=== PATIENT | male | born 1990 | race Asian ===

== ENCOUNTER 2019-02-16 19:51 | Emergency (ER) | payer BC, OTHER ==
[~2019-02-16] VITALS: Ht 180.3 cm; Wt 72.6 kg
[2019-02-16 19:59] VITALS: BP 134/86
[2019-02-16] MEDS ORDERED: TETRACAINE HCL/PF 0.5% UD 2 ML BOTTLE ONE (20:21)
[2019-02-16] MEDS ORDERED: TETRACAINE HCL/PF 0.5% UD 2 ML BOTTLE OP ONE (20:30)
[2019-02-16] MEDS ORDERED: HYDROCODONE/APAP 10/325MG 1 EA TABLET ONE (22:05)
[2019-02-16] MEDS ORDERED: HYDROCODONE/APAP 10/325MG 1 EA TABLET PO ONE (22:30)
== END 2019-02-16 22:35 | disposition home or self-care (01) ==
LOC: ER 19:51
DX: H53.8 Other visual disturbances (principal); Z60.2 Problems related to living alone

== ENCOUNTER 2019-12-24 10:16 | Emergency (ER) | payer BC, OTHER ==
[~2019-12-24] VITALS: Ht 182.9 cm; Wt 77.1 kg
--- NOTE | 2019-12-24 10:16 | NUR ---
PT BIB SELF C/O ON AND OF FEVER FOR 5 DAYS, PT IS AAOX4, NOT IN RESPIRATORY DISTRESS, HOOKED TO MONITOR, KEPT RESTED AND COMFORTABLE, WILL CONTINUE TO MONITOR.
--- NOTE | 2019-12-24 10:30 | NUR ---
SEEN AND EXAMINED BY .
[2019-12-24 11:01] LABS: APPEARANCE,URINE Clear (CLEAR); BILIRUBIN,URINE Negative (NEGATIVE); BLOOD, URINE Negative Ery/uL (NEGATIVE); COLOR,URINE Yellow (YELLOW); KETONES,URINE Negative (NEGATIVE); LEUKOCYTE ESTERASE ,URINE Negative (NEGATIVE); NITRITE, URINE Negative (NEGATIVE); PH,URINE 6.5 (5.0-8.0); PROTEIN,URINE Negative (NEGATIVE); UGLUCOSE Negative (NEGATIVE)
--- NOTE | 2019-12-24 11:01 | NUR ---
RAPID INFLUENZA AND COVID SWAB OBTAINED AND SENT TO LAB.
--- NOTE | 2019-12-24 11:05 | NUR ---
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
--- NOTE | 2019-12-24 12:07 | NUR ---
Patient discharged to home in stable condition. Written and verbal after care instructions given. Patient verbalizes understanding of instruction.
[2019-12-24 12:10] VITALS: BP 127/71
[2019-12-24 12:10] LABS: BASOPHILS % (AUTO) 0.3 % (0.0-2.0); EOSINOPHILS % (AUTO) 0.9 % (0.0-6.0); HEMATOCRIT 47 % (39-51); HEMOGLOBIN 16.2 g/dL (13.5-17.5); LYMPHOCYTES # (AUTO) 1.3 /CMM (0.8-4.8); LYMPHOCYTES % (AUTO) 18.4 % (20.0-44.0); MEAN CORPUSCULAR HGB CONC 35 g/dl (31.0-36.0); MEAN CORPUSCULAR VOLUME 89 fL (80-96); MONOCYTES # (AUTO) 0.8 /CMM (0.1-1.30); MONOCYTES % (AUTO) 11.1 % (2.0-12.0); NEUTROPHILS % (AUTO) 69.3 % (43.0-81.0); PLATELET COUNT (AUTO) 191 /CMM (150-450); RED BLOOD CELL COUNT(AUTO) 5.27 MIL/uL (4.5-6.0); WHITE BLOOD COUNT (AUTO) 7.2 K/uL (4.3-11.0)
== END 2019-12-24 12:10 | disposition home or self-care (01) ==
LOC: ER 10:18
DX: R50.9 Fever, unspecified (principal); R05 Cough; Z20.828 Contact with and (suspected) exposure to other viral communicable diseases; R30.0 Dysuria
CPT/HCPCS: 36415; 71045; 81001; 85025; 87086; 87491; 87591; 87804; 99284; U0003; 81000-TC

== ENCOUNTER 2020-01-05 15:25 | Outpatient (CLI) | payer BC | END 2020-01-05 23:59 | disposition home or self-care (01) | LOC: LAB 15:25 | PROVIDERS: ATTEND Legal Medicine | DX: R33.9 Retention of urine, unspecified (principal) | CPT/HCPCS: 87086-TC ==

== ENCOUNTER 2020-01-09 10:58 | Outpatient (CLI) | payer BC ==
[2020-01-09 12:23] LABS: FREE T4 (FREE THYROXINE) 1.13 ng/dL (0.76-1.46); PROSTATE SPECIFIC ANTIGEN SCR 1.12 ng/mL (0.00-4.00)
[2020-01-09 12:39] LABS: ALBUMIN 4.1 g/dL (3.4-5.0); BILIRUBIN,TOTAL 0.5 mg/dL (0.2-1.0); CALCIUM, SERUM 9.2 mg/dL (8.5-10.1); CREATININE 0.9 mg/dL (0.6-1.3)
== END 2020-01-09 23:59 | disposition home or self-care (01) ==
LOC: LAB 10:58
PROVIDERS: ATTEND Legal Medicine
DX: Z00.00 Encounter for general adult medical examination without abnormal findings (principal); R30.0 Dysuria
CPT/HCPCS: 36415; 80053-TC; 80061-TC; 84153-TC; 84402; 84403; 84439-TC; 86592; 87806

== ENCOUNTER 2020-04-18 10:14 | Emergency (ER) | payer BC, OTHER ==
[~2020-04-18] VITALS: Ht 182.9 cm; Wt 81.6 kg
[2020-04-18 10:16] VITALS: BP 116/70
== END 2020-04-18 10:33 | disposition home or self-care (01) ==
LOC: ER 10:16
DX: Z20.828 Contact with and (suspected) exposure to other viral communicable diseases (principal)
CPT/HCPCS: 99283; C9803; U0003

== ENCOUNTER 2020-04-27 09:26 | Emergency (ER) | payer OTHER ==
[~2020-04-27] VITALS: Ht 182.9 cm; Wt 81.6 kg
[2020-04-27 09:33] VITALS: BP 134/88
== END 2020-04-27 09:53 | disposition home or self-care (01) ==
LOC: ER 09:28
DX: Z20.828 Contact with and (suspected) exposure to other viral communicable diseases (principal); R03.0 Elevated blood-pressure reading, without diagnosis of hypertension
CPT/HCPCS: 99283; C9803; U0003

== ENCOUNTER 2020-05-04 08:41 | Emergency (ER) | payer OTHER ==
[~2020-05-04] VITALS: Ht 182.9 cm; Wt 81.6 kg
[2020-05-04 08:42] VITALS: BP 120/67
== END 2020-05-04 09:17 | disposition home or self-care (01) ==
LOC: ER 08:42
DX: Z20.828 Contact with and (suspected) exposure to other viral communicable diseases (principal)
CPT/HCPCS: 99283; C9803; U0003

== ENCOUNTER 2020-05-17 14:49 | Emergency (ER) | payer OTHER ==
[~2020-05-17] VITALS: Ht 182.9 cm; Wt 81.6 kg
[2020-05-17 14:53] VITALS: BP 127/80
== END 2020-05-17 15:38 | disposition home or self-care (01) ==
LOC: ER 14:51
DX: Z20.828 Contact with and (suspected) exposure to other viral communicable diseases (principal)
CPT/HCPCS: 99283; C9803; U0003

== ENCOUNTER 2020-05-25 16:26 | Emergency (ER) | payer OTHER ==
[~2020-05-25] VITALS: Ht 182.9 cm; Wt 81.6 kg
[2020-05-25 16:32] VITALS: BP 128/83
== END 2020-05-25 16:54 | disposition home or self-care (01) ==
LOC: ER 16:28
DX: Z20.828 Contact with and (suspected) exposure to other viral communicable diseases (principal)
CPT/HCPCS: 99283; C9803; U0003

== ENCOUNTER 2020-06-02 11:23 | Emergency (ER) | payer OTHER ==
[~2020-06-02] VITALS: Ht 182.9 cm; Wt 81.6 kg
[2020-06-02 11:25] VITALS: BP 121/71
--- NOTE | 2020-06-02 11:40 | NUR ---
COVID SPECIMEN OBTAINED AND SENT TO LAB.
--- NOTE | 2020-06-02 11:41 | NUR ---
Patient discharged to home in stable condition. Written and verbal after care instructions given. Patient verbalizes understanding of instruction.
== END 2020-06-02 11:42 | disposition home or self-care (01) ==
LOC: ER 11:25
DX: Z20.828 Contact with and (suspected) exposure to other viral communicable diseases (principal)
CPT/HCPCS: 99283; C9803; U0003

== ENCOUNTER 2020-06-09 08:27 | Emergency (ER) | payer OTHER ==
[~2020-06-09] VITALS: Ht 182.9 cm; Wt 79.4 kg
[2020-06-09 08:32] VITALS: BP 127/78
--- NOTE | 2020-06-09 08:45 | NUR ---
COVID SPECIMEN OBTAINED AND SENT TO LAB.
--- NOTE | 2020-06-09 08:49 | NUR ---
DPatient discharged to home in stable condition. Written and verbal after care instructions given. Patient verbalizes understanding of instruction.
== END 2020-06-09 08:50 | disposition home or self-care (01) ==
LOC: ER 08:30
DX: Z20.828 Contact with and (suspected) exposure to other viral communicable diseases (principal)
CPT/HCPCS: 99283; U0003; C9803

== ENCOUNTER 2020-06-16 09:49 | Emergency (ER) | payer OTHER ==
[~2020-06-16] VITALS: Ht 182.9 cm; Wt 77.1 kg
[2020-06-16 09:50] VITALS: BP 125/81
--- NOTE | 2020-06-16 09:51 | NUR ---
CALLED LAB FOR COVID KIT.
--- NOTE | 2020-06-16 10:20 | NUR ---
Patient discharged to home in stable condition. Written and verbal after care instructions given. Patient verbalizes understanding of instruction.
== END 2020-06-16 10:21 | disposition home or self-care (01) ==
LOC: ER 09:50
DX: Z20.828 Contact with and (suspected) exposure to other viral communicable diseases (principal)
CPT/HCPCS: 99283; C9803; U0003

== ENCOUNTER 2020-06-22 08:07 | Emergency (ER) | payer OTHER ==
[~2020-06-22] VITALS: Ht 182.9 cm; Wt 77.1 kg
[2020-06-22 08:09] VITALS: BP 122/74
== END 2020-06-22 08:30 | disposition home or self-care (01) ==
LOC: ER 08:07
DX: Z20.828 Contact with and (suspected) exposure to other viral communicable diseases (principal)
CPT/HCPCS: 99283; C9803; U0003

== ENCOUNTER 2020-07-05 14:24 | Emergency (ER) | payer OTHER ==
[~2020-07-05] VITALS: Ht 182.9 cm; Wt 77.1 kg
[2020-07-05 14:28] VITALS: BP 124/68
--- NOTE | 2020-07-05 15:10 | NUR ---
COVID SWAB SENT.
== END 2020-07-05 15:10 | disposition home or self-care (01) ==
LOC: ER 14:26
DX: Z20.828 Contact with and (suspected) exposure to other viral communicable diseases (principal)
CPT/HCPCS: 99283; C9803; U0003

== ENCOUNTER 2020-07-13 08:45 | Emergency (ER) | payer OTHER ==
[~2020-07-13] VITALS: Ht 182.9 cm; Wt 79.4 kg
[2020-07-13 09:17] VITALS: BP 123/73
--- NOTE | 2020-07-13 09:19 | NUR ---
Covid swab sent. Patient discharged to home in stable condition. Written and verbal after care instructions given. Patient verbalizes understanding of instruction.
== END 2020-07-13 09:46 | disposition home or self-care (01) ==
LOC: ER 08:45
DX: Z20.828 Contact with and (suspected) exposure to other viral communicable diseases (principal)
CPT/HCPCS: 99283; C9803; U0003

== ENCOUNTER 2020-12-29 10:48 | Emergency (ER) | payer OTHER ==
[~2020-12-29] VITALS: Ht 182.9 cm; Wt 83.9 kg
[2020-12-29 11:01] VITALS: BP 127/81
== END 2020-12-29 11:23 | disposition home or self-care (01) ==
LOC: ER 10:49
DX: Z20.822 Contact with and (suspected) exposure to COVID-19 (principal)
CPT/HCPCS: 99283; C9803; U0003

== ENCOUNTER 2021-01-14 02:22 | Emergency (ER) | payer OTHER ==
[~2021-01-14] VITALS: Ht 182.9 cm; Wt 83.9 kg
[2021-01-14 02:26] VITALS: BP 119/68
--- NOTE | 2021-01-14 20:59 | NUR ---
LAB CALLED REGARDING NEGATIVE COVID RESULT.
== END 2021-01-14 03:25 | disposition home or self-care (01) ==
LOC: ER 02:27
DX: Z20.822 Contact with and (suspected) exposure to COVID-19 (principal)
CPT/HCPCS: 99283; C9803; U0003

== ENCOUNTER 2021-02-18 11:55 | Outpatient (CLI) | payer BC ==
[2021-02-18 13:03] LABS: BASOPHILS % (AUTO) 0.4 % (0.0-2.0); HEMATOCRIT 46 % (39-51); HEMOGLOBIN 15.3 g/dL (13.5-17.5); LYMPHOCYTES # (AUTO) 1.5 K/uL (0.8-4.8); LYMPHOCYTES % (AUTO) 26.8 % (20.0-44.0); MEAN CORPUSCULAR HGB CONC 33 g/dl (31.0-36.0); MEAN CORPUSCULAR VOLUME 91 fL (80-96); MONOCYTES # (AUTO) 0.4 K/uL (0.1-1.30); MONOCYTES % (AUTO) 6.5 % (2.0-12.0); NEUTROPHILS # (AUTO) 3.5 K/uL (1.8-8.9); NEUTROPHILS % (AUTO) 65.3 % (43.0-81.0); PLATELET COUNT (AUTO) 204 K/uL (150-450); RED BLOOD CELL COUNT(AUTO) 5.09 MIL/uL (4.5-6.0); WHITE BLOOD COUNT (AUTO) 5.4 K/uL (4.3-11.0)
[2021-02-18 13:04] LABS: BILIRUBIN,URINE NEGATIVE (NEGATIVE); COLOR,URINE YELLOW (YELLOW); LEUKOCYTE ESTERASE ,URINE NEGATIVE (NEGATIVE); NITRITE, URINE NEGATIVE (NEGATIVE); PH,URINE 5.5 (5.0-8.0); PROTEIN,URINE NEGATIVE (NEGATIVE); UGLUCOSE NEGATIVE (NEGATIVE); UROBILINOGEN,URINE 0.2 EU/dL (0.2)
[2021-02-18 13:43] LABS: FREE T4 (FREE THYROXINE) 1.14 ng/dL (0.76-1.46); THYROID STIMULATING HORMONE 0.546 uIU/mL (0.358-3.74)
[2021-02-18 13:49] LABS: ALBUMIN 3.9 g/dL (3.4-5.0); BILIRUBIN,TOTAL 0.4 mg/dL (0.2-1.0); CALCIUM, SERUM 8.9 mg/dL (8.5-10.1); CREATININE 1.1 mg/dL (0.6-1.3); POTASSIUM 4.1 mmol/L (3.5-5.1); TOTAL PROTEIN, SERUM 7.3 g/dL (6.4-8.2)
== END 2021-02-18 23:59 | disposition home or self-care (01) ==
LOC: LAB 11:55
PROVIDERS: ATTEND Legal Medicine
DX: I12.9 Hypertensive chronic kidney disease with stage 1 through stage 4 chronic kidney disease, or unspecified chronic kidney disease (principal); E11.22 Type 2 diabetes mellitus with diabetic chronic kidney disease; N18.9 Chronic kidney disease, unspecified; E78.5 Hyperlipidemia, unspecified; D64.9 Anemia, unspecified; E55.9 Vitamin D deficiency, unspecified; Z00.00 Encounter for general adult medical examination without abnormal findings
CPT/HCPCS: 36415; 80053-TC; 80061-TC; 82306; 82607-TC; 82626; 82728-TC; 83540-TC; 84402; 84403; 84439-TC; 84443-TC; 85025-TC; 86592; 86694; 87491; 87591; 87806